=== PATIENT | male | born 1985 | race Caucasian/White ===

== ENCOUNTER 2020-10-24 09:46 | Outpatient (CLI) | payer OTHER, SELFPAY ==
--- NOTE | ~2020-10-24 | US_ITS ---
EXAMINATION: US soft tissue head and neck EXAM DATE: 10/24/2020 10:19 INDICATION: R22.1 - Localized swelling, mass and lump, neck . Symptoms for greater than 10 years, but reportedly getting bigger. TECHNIQUE: Multiple grayscale and Doppler images of the symptomatic right-sided neck region were obta ined (by a technologist who performed the scan) and subsequently reviewed. There is no prior study f or comparison. FINDINGS: Scanning with images labeled posterior to right ear, at the palpable abnormality demonstrates heterog eneous striated appearance well-defined region within the musculature, striations appear similar to m usculature but may be slightly more hyperechoic, with measurement of 3.8 x 1.0 x 3.0 cm. No evidence of cystic component. Several subcentimeter lymph nodes were also identified. IMPRESSION: Nonspecific soft tissue intramuscular mass like region of uncertain clinical significance . Could be muscular hypertrophy. Favor benign histology but CT neck with contrast is recommended for further evaluation. Reviewed, dictated and finalized at location A. OGIC NURSE IMPRESSION: Nonspecific soft tissue intramuscular mass like region of uncertain clinical significance. Could be muscular hypertrophy. Favor benign histology b ut CT neck with contrast is recommended for further evaluation.
== END 2020-10-24 09:47 ==
LOC: MICIMG 09:47
PROVIDERS: PCP Family Medicine; Visit Provider Family Medicine
DX: R22.1 Localized swelling, mass and lump, neck (principal)
CPT/HCPCS: 76536

== ENCOUNTER 2020-12-04 14:04 | Outpatient (CLI) | payer OTHER, SELFPAY ==
--- NOTE | ~2020-12-04 | CT_ITS ---
EXAMINATION: CT soft tissue neck w con DATE: 12/04/2020 14:41 INDICATION: Right neck mass. TECHNIQUE: Computed tomography (CT) of the neck was performed with 75 mL Omnipaque-350 intravenous co ntrast. Automated exposure control and iterative reconstruction technique were employed. The dose-antony gth product was 413.31 mGy-cm. COMPARISON: None FINDINGS: The visualized portions of the lung apices demonstrate emphysema. There is a 2.6 x 1.3 cm l ipoma involving the right sternocleidomastoid muscle near the right mastoid process. A skin marker ov erlies this area. There are no pathologically enlarged lymph nodes. There is moderate cervical spondy losis. IMPRESSION: 1. Lipoma involving the right sternocleidomastoid muscle in the patient's area of concern. 2. Emphysema. Reviewed, dictated and finalized at location A. [employer] OPER[employer] COMPLIANCE MANAGER
== END 2020-12-04 14:05 ==
PROVIDERS: PCP Family Medicine; Visit Provider Family Medicine
DX: R22.1 Localized swelling, mass and lump, neck (principal); D17.0 Benign lipomatous neoplasm of skin and subcutaneous tissue of head, face and neck; J43.9 Emphysema, unspecified
CPT/HCPCS: 70491; Q9967

== ENCOUNTER 2024-09-16 16:42 | Outpatient (CLI) | payer OTHER, SELFPAY ==
--- NOTE | ~2024-09-16 | XR_ITS ---
XR abdomen/kub 1V Ordering provider: Yuridia Madera PA-C History: . K59.00 - Constipation, unspecified . Comparison: None. FINDINGS: BOWEL: Nonobstructive bowel gas pattern. Fecal material seen in the transverse and descending colon. ORGANOMEGALY: None. SIGNIFICANT PATHOLOGIC CALCIFICATIONS: None. OTHER: No free air is seen under the diaphragm. IMPRESSION: NO ACUTE ABDOMINAL FINDINGS. Possible constipation. Reviewed, dictated and finalized at location A. FACULTY ASSISTANT
== END 2024-09-16 16:43 | disposition home or self-care (01) ==
LOC: ANHIMG 16:47
PROVIDERS: PCP Family Medicine; Visit Provider Student in an Organized Health Care Education/Training Program
DX: K59.00 Constipation, unspecified (principal)
CPT/HCPCS: 74018